=== PATIENT | male | born 1960 | race Caucasian/White ===

== ENCOUNTER 2019-02-06 20:44 | Emergency (ER) | payer BC ==
[2019-02-06 20:53] VITALS: BP 131/63; PULSE 71; RESP 18; TEMP 97.4
[2019-02-06] MEDS ORDERED: KETOROLAC 30 MG/ML 1 ML VIAL IM STA (21:22)
[2019-02-06] MEDS ORDERED: methylPREDNISolone SOD SUCCI 125 MG/2 ML VIAL IM STA (21:23)
--- NOTE | 2019-02-06 21:39 | ED ---
General Adult HPI - General Chief complaint: Back Pain/Injury Stated complaint: R Leg Pain Time Seen by Provider: 02/06/19 21:08 Source: patient, RN notes reviewed Mode of arrival: wheelchair Limitations: no limitations - History of Present Illness Initial comments: 58-year-old male presents to the emergency department for right leg pain and low back pain. Patient states he has chronic back pain for the past 20 years. 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 Patient states that after he got out of the crawl space he noticed the pain in his low back worsened and started to radiate down his right leg. States this has happened before. Patient was seen by physical therapist shortly after that. States the pain radiates from his right lower back down to his right leg. States lifting his right leg off the bed makes this worse. Denies any weakness of the lower extremities. Denies any numbness or tingling. Denies numbness in the groin or buttock. Denies blood or bowel changes. Patient is able to ambulate.Patient has no other complaints at this time including shortness of breath, chest pain, abdominal pain, nausea or vomiting, headache, or visual changes. - Related Data Previous Rx's Medication Instructions Recorded predniSONE 50 mg PO DAILY #5 tablet 02/06/19 Allergies Allergy/AdvReac Type Severity Reaction Status Date / Time No Known Allergies Allergy Verified 02/06/19 20:52 Review of Systems ROS Statement: Those systems with pertinent positive or pertinent negative responses have been documented in the HPI. ROS Other: All systems not noted in ROS Statement are negative. Past Medical History Past Medical History: No Reported History History of Any Multi-Drug Resistant Organisms: None Reported Past Surgical History: Hernia Repair Past Psychological History: No Psychological Hx Reported Smoking Status: Never smoker Past Alcohol Use History: None Reported Past Drug Use History: None Reported General Exam Limitations: no limitations General appearance: alert, in no apparent distress Head exam: Present: atraumatic, normocephalic, normal inspection Eye exam: Present: normal appearance, PERRL, EOMI. Absent: scleral icterus, conjunctival injection, periorbital swelling ENT exam: Present: normal exam, mucous membranes moist Neck exam: Present: normal inspection. Absent: tenderness, meningismus, lymphadenopathy Respiratory exam: Present: normal lung sounds bilaterally. Absent: respiratory distress, wheezes, rales, rhonchi, stridor Cardiovascular Exam: Present: regular rate, normal rhythm, normal heart sounds. Absent: systolic murmur, diastolic murmur, rubs, gallop, clicks Extremities exam: Present: full ROM (strength 5 out of 5 in the right lower extremity.), normal capillary refill (bleary refill less than 2 seconds in the right lower extremity, DP pulse 2+, PT pulse 2+.), other (patient has positive straight leg raise test. Sensation intact in groin as well as throughout the right lower extremity.). Absent: calf tenderness (negative Homans sign, no calf tenderness erythema or edema.) Course Vital Signs 02/06/19 20:50 Temperature 97.4 F L Pulse Rate 71 Respiratory 18 Rate Blood Pressure 131/63 O2 Sat by Pulse 97 Oximetry Medical Decision Making - Medical Decision Making pain is likely sciatic in nature given radiation from the low back down to the right leg. He does not have any red flag symptoms including fever. Patient ambulatory. This is likely acute on chronic exacerbation of back pain with sciatic features. Patient given Toradol and Solu-Medrol here in the emergency department. Will be put on prednisone. He is not a diabetic. I discussed eating while taking both Motrin and prednisone given erosive nature of these 2 medications. He will follow up with primary care in 1-2 days. He will return i f he has any worsening symptoms. Disposition Clinical Impression: Sciatic leg pain, Mechanical back pain Disposition: HOME SELF-CARE Condition: Good Instructions (If sedation given, give patient instructions): Acute Low Back Pain (ED) Additional Instructions: please take Motrin and Tylenol for pain. Take prednisone as directed. Remember to eat before taking Motrin and prednisone to protect her stomach. Follow-up with primary care in the next 1-2 days. If you have worsening symptoms such as inability to walk, numbness or tingling in her groin or buttock, or bladder or bowel changes return immediately to the emergency department. Prescriptions: predniSONE 50 mg PO DAILY #5 tablet Is patient prescribed a controlled substance at d/c from ED?: No Referrals: Marcio Kiran DO [Primary Care Provider] - 1-2 days Time of Disposition: 21:38
== END 2019-02-06 21:40 | disposition home or self-care (01) ==
LOC: EC 20:44
DX: M54.41 Lumbago with sciatica, right side (principal)
CPT/HCPCS: 99283; 96372 ×2; J2930; J1885

== ENCOUNTER → 2023-02-05 | Outpatient (CLI) | payer BC ==
--- NOTE | 2023-02-05 16:25 | US ---
EXAMINATION TYPE: US carotid duplex BILAT DATE OF EXAM: 02/05/2023 COMPARISON: NONE CLINICAL INDICATION: Male, 62 years old with history of R41.3 OTHER AMNESIA; Short term memory loss x 1 year TECHNIQUE: Carotid duplex ultrasound examination. Indirect Doppler criteria was utilized. FINDINGS: EXAM MEASUREMENTS: RIGHT: Peak Systolic Velocity (PSV) cm/sec ----- Right CCA: 84 ----- Right ICA: 69 ----- Right ECA: 93 ICA/CCA ratio: 0.8 RIGHT: End Diastole cm/sec ----- Right CCA: 26 ----- Right ICA: 22 ----- Right ECA: 24 LEFT: Peak Systolic Velocity (PSV) cm/sec ----- Left CCA: 74 ----- Left ICA: 70 ----- Left ECA: 57 ICA/CCA ratio: 0.9 LEFT: End Diastole cm/sec ----- Left CCA: 23 ----- Left ICA: 29 ----- Left ECA: 11 VERTEBRALS (direction of flow): Right Vertebral: Antegrade Left Vertebral: Antegrade Rhythm: Normal HYPO DIPPER NOTES: No intimal thickening, plaque, or abnormal velocities bilaterally. ICAs and ECAs t apered/curved away immediately after bifurcation. Lymph nodes noted bilaterally. IMPRESSION: Less than 50% stenosis of the bilateral carotid bifurcations. Criteria for Assigning % of Stenosis / Diameter reduction (Estimation based on the indirect measurements of the internal carotid artery velocities (ICA PSV). 1. Normal (no stenosis)=ICA PSV < 125 cm/s: ratio < 2.0: ICA EDV<40 cm/s. 2. Less than 50% stenosis=ICA PSV < 125 cm/s: ratio < 2.0: ICA EDV<40 cm/s. 3. 50 to 69% stenosis=ICA PSV of 125 to 230 cm/s: ration 2.0 ? 4.0: ICA EDV 40-100 cm/s. 4. Greater than 70% stenosis to near occlusion= ICA PSV > 230 cm/s: ratio > 4.0: ICA EDV > 100 cm/s. 5. Near occlusion= ICA PSV velocities may be low or undetectable: variable ratio and ICA EDV. 6. Total occlusion=unable to detect flow.
--- NOTE | 2023-02-08 10:30 | CT ---
EXAMINATION TYPE: CT brain wo con DATE OF EXAM: 02/05/2023 COMPARISON: None INDICATION: Memory loss x3yrs. DLP: 1066.9 mGycm, Automated exposure control for dose reduction was used. CONTRAST: None CT of the brain is performed utilizing 3 mm thick sections through the posterior fossa and 3 mm thick sections through the remaining calvarium. Study is performed within 24 hours of arrival to the hosp [facility]. No abnormal hyperdensity is present to suggest an acute intracranial hemorrhage. No mass lesion is evident. No acute infarcts are evident. Ventricles and sulci are appropriate for the patient age. Paranasal sinuses and mastoid air cells within the [id number] are clear. IMPRESSION: 1. No acute intracranial process.
== END | disposition home or self-care (01) ==
LOC: RADUSWWP 15:11
PROVIDERS: ATTEND Family Medicine
DX: I65.23 Occlusion and stenosis of bilateral carotid arteries (principal); R41.3 Other amnesia
CPT/HCPCS: 70450; 93880